=== PATIENT | male | born 1930 ===

== ENCOUNTER 2019-06-10 16:24 | Observation (INO) | payer MEDICARE, BC ==
[2019-06-10] MEDS ORDERED: Sodium Chloride 0.9% 10 ML SDV IV PRN (16:45)
[2019-06-10] MEDS ORDERED: Sodium Chloride 0.9% 2.5 ML Syringe FLUSH PRN (16:45)
[2019-06-10] MEDS ORDERED: Sodium Chloride 0.9% 10 ML Syringe FLUSH PRN (16:45)
[2019-06-10] MEDS: Lactated Ringers 1,000 ML IV SCH (17:13)
[2019-06-10] MEDS: cefTRIAXone 1 GM in Sodium Chloride 0.9% 50 ML IV SCH (17:14)
[2019-06-11] MEDS: Insulin Aspart 100 Units/ML 3 ML Pen SUBCUT SCH ×4 (00:37→19:03)
[2019-06-11] MEDS: cefTRIAXone 1 GM in Sodium Chloride 0.9% 50 ML IV SCH ×2 (05:20→16:33)
[2019-06-11] MEDS: Lactated Ringers 1,000 ML IV SCH ×2 (06:37→17:53)
[2019-06-11 07:05] LABS: CARBON DIOXIDE,CO2 24.6 mmol/L (21.0-32.0); POTASSIUM,K 4.8 mmol/L (3.5-5.1)
[2019-06-11] MEDS ORDERED: Ondansetron 4 MG/2 ML SDV IVPUSH ONE (12:45)
[2019-06-11] MEDS ORDERED: fentaNYL 100 MCG/2 ML SDV IVPUSH PRN (12:45)
[2019-06-11] MEDS ORDERED: Belladonna Alkaloids/Opium 16.2-30 MG Supp RECTAL PRN (14:16)
[2019-06-11] MEDS ORDERED: D5 1/2 NS w/ 20 mEq/L KCl 1,000 ML IV SCH (14:30)
[2019-06-11 15:00] LABS: POTASSIUM,K 4.1 mmol/L (3.5-5.1)
--- NOTE | 2019-06-11 15:18 | OR ---
SURGEON: Rafi Rubio M.D. DATE OF PROCEDURE: 06/11/2019 PREOPERATIVE DIAGNOSIS: BPH with urinary retention. POSTOPERATIVE DIAGNOSIS: BPH with urinary retention. OPERATION: TURP. DESCRIPTION OF PROCEDURE: The patient was given spinal anesthesia, placed in dorsal lithotomy position, prepped and draped in sterile drapes. 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 A 26-Anguillan resectoscope was then placed in the bladder. The resection was done in the usual manner going laterally after the median lobe was resected, finally the anterior lobe of the prostate was resected. At the end of the resection, all prostatic chips were removed. Both ureteral orifices were intact. The area of the external sphincter was intact. A 22 three-way Solomon catheter with 60 mL in the balloon was left in the bladder connected to TUR drip. Estimated blood loss 300 mL. MIGUEL / MARA /[id number] ELINA
[2019-06-11] MEDS: Docusate Sodium 100 MG Cap PO SCH (20:58)
[2019-06-11] MEDS: Bacitracin Oint 28.35 GM Tube TOP SCH (22:00)
[2019-06-12] MEDS: Insulin Aspart 100 Units/ML 3 ML Pen SUBCUT SCH ×4 (00:11→17:48)
[2019-06-12] MEDS: cefTRIAXone 1 GM in Sodium Chloride 0.9% 50 ML IV SCH ×2 (04:34→17:19)
[2019-06-12] MEDS: Lactated Ringers 1,000 ML IV SCH (06:48)
[2019-06-12] MEDS: Bacitracin Oint 28.35 GM Tube TOP SCH ×3 (06:51→22:36)
[2019-06-12] MEDS: Insulin Glargine,Human Rec. Analog 100 Units/ML 3 ML Pen SUBCUT SCH (09:55)
[2019-06-12] MEDS: Allopurinol 100 MG Tab PO SCH (09:58)
[2019-06-12] MEDS: Potassium Chloride 10 MEQ Tab.ER PO SCH (09:58)
[2019-06-12] MEDS: amLODIPine 5 MG Tab PO SCH (09:58)
[2019-06-12] MEDS: Hydrochlorothiazide 25 MG Tab PO SCH (09:58)
[2019-06-12] MEDS: Docusate Sodium 100 MG Cap PO SCH ×2 (09:59→21:07)
--- NOTE | 2019-06-12 12:20 | PCM48HPAN ---
Post Anesthesia Note - EVALUATION WITHIN 48HRS OF ANESTHETIC Vital Signs in Normal Range: Yes Patient Participated in Evaluation: Yes Respiratory Function Stable: Yes Airway Patent: Yes Cardiovascular Function Stable: Yes Hydration Status Stable: Yes Pain Control Satisfactory: Yes Nausea and Vomiting Control Satisfactory: Yes Mental Status Recovered: Yes Vital Signs: Last Vital Signs Temp 98.1 F 06/12/19 08:00 Pulse 95 06/12/19 08:00 Resp 16 06/12/19 08:00 BP 172/77 H 06/12/19 09:58 Pulse Ox 94 L 06/12/19 08:00
[2019-06-13] MEDS: Insulin Aspart 100 Units/ML 3 ML Pen SUBCUT SCH ×2 (00:57→06:01)
[2019-06-13] MEDS: cefTRIAXone 1 GM in Sodium Chloride 0.9% 50 ML IV SCH (04:49)
[2019-06-13 05:51] LABS: CARBON DIOXIDE,CO2 24.1 mmol/L (21.0-32.0); POTASSIUM,K 3.4 mmol/L (3.5-5.1)
[2019-06-13] MEDS: Bacitracin Oint 28.35 GM Tube TOP SCH (06:01)
[2019-06-13] MEDS: Docusate Sodium 100 MG Cap PO SCH (09:05)
[2019-06-13] MEDS: Potassium Chloride 10 MEQ Tab.ER PO SCH (09:05)
[2019-06-13] MEDS: Allopurinol 100 MG Tab PO SCH (09:06)
[2019-06-13] MEDS: amLODIPine 5 MG Tab PO SCH (09:12)
[2019-06-13] MEDS: Hydrochlorothiazide 25 MG Tab PO SCH (09:12)
[2019-06-13] MEDS: Insulin Glargine,Human Rec. Analog 100 Units/ML 3 ML Pen SUBCUT SCH (09:27)
--- NOTE | 2019-06-13 10:51 | DISCH ---
DATE OF DISCHARGE: PRIMARY CARE PHYSICIAN: Shane Keller PCP An 89-year-old. He was in urinary retention and renal failure. He was seen in the office. He has had a catheter in. He was admitted to the hospital, had IV antibiotics. His catheter was removed and was taken to the operating room two days ago. Postoperatively, he did well. The irrigation remained clear. The catheter was taken out on the first postop day, but he was unable to adequately void, so the catheter was put back in, and he is sent home with a catheter to be seen in my office this coming Monday, 5 days from today. He will have taken the catheter out Monday. He will come to the office on Monday afternoon for bladder ultrasound, also for followup of BUN and creatinine. Pathology is still pending. MIGUEL TERRY /[id number]
== END 2019-06-13 12:50 | disposition home or self-care (01) ==
LOC: INTOOBSV 16:24 → MW.MS 16:24
PROVIDERS: ADMIT Urology; ATTEND Urology
DX: N40.1 Benign prostatic hyperplasia with lower urinary tract symptoms (principal); R33.8 Other retention of urine; E11.9 Type 2 diabetes mellitus without complications; M10.9 Gout, unspecified; I10 Essential (primary) hypertension; Z79.899 Other long term (current) drug therapy; Z87.891 Personal history of nicotine dependence
CPT/HCPCS: 36415; 51702; 52601; 80048; 80051; 82565; 82962; 84132; 84295; 85018; 85025; 96361; 96365; 96366; 96367; 96376; A9270; G0378; J0696; J1815; J3260; J7050; J7120; 00914